=== PATIENT | female | born 1995 | race Two or more races ===

== ENCOUNTER 2024-07-04 03:47 | Emergency (ER) | payer SELFPAY ==
[2024-07-04] MEDS ORDERED: Ondansetron PF 4 MG/2 ML Vial ONE (04:18)
[2024-07-04] MEDS ORDERED: Famotidine/PF 20 mg/2ml Vial ONE (04:19)
[2024-07-04] MEDS ORDERED: Pantoprazole 40 MG VIAL ONE (04:25)
[2024-07-04] MEDS ORDERED: Morphine 4 MG/ML VIAL ONE (04:25)
[2024-07-04] MEDS ORDERED: Morphine 2 MG/ML VIAL ONE (04:25)
[2024-07-04 05:10] LABS: #Basophils 0.1 thou/uL (0.0-0.2); #Lymphocytes 1.3 thou/uL (1.20-3.40); #Monocytes 0.7 thou/uL (0.11-0.59); %Basophils 0.5 % (0.0-1.0); %Eosinophils 0.1 % (0.0-10.0); %Lymphocytes 6.9 % (21.0-51.0); %Monocytes 3.8 % (0.0-10.0); %Neutrophils 88.7 % (42.0-75.0); Hemoglobin 14.1 g/dL (12.0-16.0); Mean Corpuscular HGB CONC 32.9 g/dL (32.0-36.0); Mean Corpuscular Hemoglobin 27.5 pg (27.0-31.0); Mean Corpuscular Volume 83.7 fl (78.0-98.0); Mean Platelet Volume 6.7 fL (7.4-10.4); Platelet Count 331 10x3/uL (130-400); RBC Distribution Width 12.1 % (11.5-14.5); Red Blood Cell (RBC) Count 5.13 mill/uL (4.20-5.40); White Blood Cell (WBC) Count 19.1 10x3/uL (4.8-10.8)
[2024-07-04 05:13] LABS: Bilirubin Small (Negative); Blood, Urine Negative (Negative); Clarity Slightly Cloudy (Clear); Glucose, Urine (Dipstick) Negative (Negative); Ketone, Urine Negative (Negative); Leukocyte Negative (Negative); Nitrite Negative (Negative); Protein, Urine (Dipstick) 100 mg/dL (Neg-Trace); pH, Urine 5.5 (5.0-9.0)
[2024-07-04 05:15] LABS: Specific Gravity, Urine 1.027 (1.002-1.036)
[2024-07-04 05:18] LABS: BHCG - Serum Negative (NEGATIVE); Pregs Control Bar Appear? YES (CONTROL BAR)
[2024-07-04 05:19] LABS: Pregs Control Background? CLEAR/WHITE (CLR/WHITE)
[2024-07-04 05:20] LABS: ALT (SGPT) 12 U/L (8-55); AST (SGOT) 13 U/L (5-34); Albumin 3.8 g/dL (3.5-5.0); Alkaline Phosphatase 80 U/L (40-110); Anion Gap 14 mmol/L (10-20); BUN (Urea Nitrogen) 5 mg/dL (7.0-18.7); Bilirubin, Total 0.2 mg/dL (0.2-1.2); Calc. Creatinine Clearance 0 mL/min (70-130); Calcium 9.7 mg/dL (7.8-10.44); Carbon Dioxide 21 mmol/L (22-29); Chloride 106 mmol/L (98-107); Estimated GFR 114; Globulin 3.8 g/dL (2.4-3.5); Glucose 137 mg/dL (70-105); Lipase 18 U/L (8-78); Potassium 3.2 mmol/L (3.5-5.1); Protein, Total 7.6 g/dL (6.0-8.3); Sodium 138 mmol/L (136-145)
[2024-07-04 05:22] LABS: INR-International Normal Ratio 1.1; Prothrombin Time 13.8 sec (12.0-14.7)
[2024-07-04 05:23] LABS: PTT 28.3 sec (22.9-36.1)
[2024-07-04 05:24] LABS: Pregnancy Test - Urine (BHCG) Negative (Negative); Pregu Control Background? CLEAR/WHITE (CLR/WHITE); Pregu Control Bar Appear? YES (CONTROL BAR); Specific Gravity 1.027 (1.002-1.036)
[2024-07-04 05:25] LABS: Bacteria/HPF 1+ HPF (None Seen); CAUTI Indications for Culture Acute Hematuria; RBC/HPF 0-3 HPF (0-3)
[2024-07-04 05:26] LABS: Urine Culture Reflex No No
[2024-07-04 05:28] LABS: Troponin I Less than 0.010 ng/mL (< 0.028)
[2024-07-04] MEDS ORDERED: Potassium Chloride 20 MEQ TAB ONE (05:32)
[2024-07-04] MEDS ORDERED: Iopamidol 370 76% 100 ML VIAL ONE (11:30)
== END 2024-07-04 08:30 | disposition short-term general hospital (02) ==
LOC: EDBD 03:47 → BURERS 03:47
DX: K82.8 Other specified diseases of gallbladder (principal)
CPT/HCPCS: 36415; 74177; 80053; 81001; 81025; 83605; 83690; 83880; 84484; 84703; 85025; 85610; 85730; 93005; 96361; 96374; 96375; J2272; J2405; J2470; J3490; Q9967